=== PATIENT | male | born 1955 ===

== ENCOUNTER 2019-03-03 15:29 | Emergency (ER) | payer OTHER, BC ==
[2019-03-03 15:44] VITALS: BP 137/81; PULSE 78; RESP 20; TEMP 98.7; O2SAT 100
[2019-03-03] MEDS ORDERED: Lidocaine 5% Patch TD STA (16:37)
[2019-03-03] MEDS ORDERED: Lidocaine 5% Patch TD ONE (16:47)
--- NOTE | 2019-03-03 17:37 | C.PDOC ---
History Of Present Illness 63 y/o male presents to the ER complaining of right upper back pain which began today. Patient states that he was lifting boxes from van. He was lifting boxes which contained 10 cartons each with 6 bottles of bleach. He notes that he did not take any medications for the pain. He has history of right rotator cuff surgery. Denies having weakness and numbness. Time Seen by Provider: 03/03/19 15:50 Chief Complaint (Nursing): Back Pain History Per: Patient History/Exam Limitations: no limitations Onset/Duration Of Symptoms: Hrs Current Symptoms Are (Timing): Still Present Severity: Moderate Past Medical History Reviewed: Historical Data, Nursing Documentation, Vital Signs Vital Signs: Last Vital Signs Temp 98.7 F 03/03/19 15:40 Pulse 78 03/03/19 15:40 Resp 20 03/03/19 15:40 BP 137/81 03/03/19 15:40 Pulse Ox 100 03/03/19 15:40 - Medical History PMH: No Chronic Diseases Other Surgeries: Hx of surgeries Family History: States: No Known Family Hx - Social History Hx Alcohol Use: No Hx Substance Use: No - Immunization History Hx Tetanus Toxoid Vaccination: No Hx Influenza Vaccination: No Hx Pneumococcal Vaccination: No Review Of Systems Genitourinary: Negative for: Dysuria, Hematuria Musculoskeletal: Positive for: Back Pain Neurological: Negative for: Weakness, Numbness Physical Exam - Physical Exam Appears: Non-toxic, No Acute Distress Skin: Warm, Dry Head: Atraumatic, Normacephalic Eye(s): bilateral: Normal Inspection Neck: No Midline Cervical Tenderness, Supple Cardiovascular: Rhythm Regular Respiratory: Normal Breath Sounds, No Rales, No Rhonchi, No Wheezing Back: No Vertebral Tenderness, Paraspinal Tenderness Neurological/Psych: Oriented x3, Normal Speech, Normal Motor, Normal Sensation ED Course And Treatment O2 Sat by Pulse Oximetry: 100 (RA) Pulse Ox Interpretation: Normal Medical Decision Making Medical Decision Making: Plan: --Toradol IM --Lidoderm Patch Updates: On re-evaluation, patient states that he feels better. Disposition Counseled Patient/Family Regarding: Diagnosis, Need For Followup, Rx Given - Disposition Disposition: HOME/ ROUTINE Disposition Time: 17:35 Condition: GOOD Additional Instructions: Remove patch in 12 hours. Can buy icy hot or any other brand of lidocaine patches in drugstore and use as directed on painful areas. Ibuprofen every 6 hours as prescribed. Take with food. Take muscle relaxant at bedtime- makes you sleepy so be careful. Avoid heavy lifting. Follow up with your primary care doctor and orthopedist. Warm compresses to areas helpful too. Prescriptions: Cyclobenzaprine [Cyclobenzaprine HCl] 10 mg PO HS #6 tab Ibuprofen [Motrin] 600 mg PO TID #30 tab Instructions: Muscle Strain (DC) Forms: General Discharge Instructions, [facility] (Danish), Work Excuse - Clinical Impression Clinical Impression: Muscle strain of upper back, Strain of muscle, fascia and tendon of lower back, initial encounter - PA / [employer] O[employer] / Resident Statement MD/DO has reviewed & agrees with the documentation as recorded. - Scribe Statement The provider has reviewed the documentation as recorded by the Kingsley Bui Provider Attestation All medical record entries made by the Eronibnikolai were at my direction and personally dictated by me. I have reviewed the chart and agree that the record accurately reflects my personal performance of the history, physical exam, medical decision making, and the department course for this patient. I have also personally directed, reviewed, and agree with the discharge instructions and disposition.
== END 2019-03-03 17:44 | disposition home or self-care (01) ==
LOC: C.ER 15:29
DX: S39.012A Strain of muscle, fascia and tendon of lower back, initial encounter (principal); S29.012A Strain of muscle and tendon of back wall of thorax, initial encounter; X50.9XXA Other and unspecified overexertion or strenuous movements or postures, initial encounter
CPT/HCPCS: 96372; 99283; J1885